=== PATIENT | female | born 1975 | race Caucasian/White ===

== ENCOUNTER → 2019-01-03 11:19 | Outpatient (CLI) | payer OTHER, SELFPAY ==
--- NOTE | 2019-01-03 | DI.MRI.S_ITS ---
PROCEDURE: MR LOWER LEG LT WO/W CON INDICATIONS: Pain in left lower leg TECHNIQUE: Noncontrast coronal T1 spin echo and STIR, sagittal T1 spin echo with fat saturation and STIR, axial T1 spin echo and T2 fast spin echo with fat saturation. After the administration of contrast, axial/sagittal/coronal T1 spin echo with fat saturation through the left distal femur and proximal tibia. COMPARISON: None. FINDINGS: Image quality: Excellent. Bones: The visualized bone marrow demonstrates normal signal on all sequences. The overlying cortex appears intact. However, there is mild periosteal T2 hyperintensity along the anteromedial aspect of the left mid tibia. No definite associated No abnormal intraosseous enhancement. Soft tissues: No soft tissue masses are visualized. The scanned muscles demonstrate normal overall bulk and internal signal. Subcutaneous tissues appear normal as well. No abnormal soft tissue enhancement. IMPRESSION: Mild periosteal T2 hyperintensity/edema along the anteromedial aspect of the left mid tibia, suggesting low-grade anteromedial tibial stress syndrome (durbin splints). However recommend clinical correlation given the subtlety of the MR appearance. Partially visualized Vo's cyst. Dedicated left knee MRI could be performed as clinically necessary. Dictated by: Garcia Monzon M.D. on 01/03/2019 at 15:53 Approved by: Garcia Monzon M.D. on 01/03/2019 at 16:11
== END ==
DX: M79.662 Pain in left lower leg (principal); M71.22 Synovial cyst of popliteal space [Baker], left knee
CPT/HCPCS: 73720; A9579

== ENCOUNTER → 2021-08-05 12:36 | Outpatient (CLI) | payer OTHER, SELFPAY ==
[2021-08-05 16:54] LABS: COVID19 -Nasal RAPID Negative (Negative)
== END ==
PROVIDERS: PCP Family Medicine; Visit Provider Obstetrics & Gynecology
DX: Z20.822 Contact with and (suspected) exposure to COVID-19 (principal); Z01.812 Encounter for preprocedural laboratory examination
CPT/HCPCS: 87635

== ENCOUNTER 2021-08-06 11:51 | Day surgery (SDC) | payer OTHER, SELFPAY ==
[2021-08-03 15:00] VITALS: BMI 29.5
[2021-08-06] VITALS (15 sets, daily range): BP systolic 99–124; BP diastolic 59–77; PULSE 58–96; RESP 11–17; TEMP 36.1–36.3; O2SAT 92–100; BMI 29.5
--- NOTE | 2021-08-06 | PATH_ITS ---
[facility] Accession Number: [id number] . 01 Material submitted: . uterus - UTERUS, BILATERAL FALLOPIAN TUBES . 02 Diagnosis: Uterus, Bilateral Fallopian Tubes, Total Laparoscopic Hysterectomy and Bilateral Salpingectomy (Fragmented Uterus Weight 88 grams): Proliferative endometrium; negative for glandular hyperplasia, cytologic atypia, or malignancy. Myometrium with patchy foci suggestive of adenomyosis and otherwise no significant histomorphologic abnormality. Fallopian tubes x2; complete cross-sections; small benign paratubal cysts (1-2 mm); negative for atypia or malignancy. Uterine serosa with nonspecific adhesions. [facility] 08/10/2021 1257 Local . 02 Electronically signed: . Anusha Arellano MD, Pathologist NPI- [id number] . 01 Gross description: . Received in formalin and labeled with the patient's name, designated uterus, bilateral fallopian tubes, is a markedly disrupted and fragmented uterus with bilateral undesignated fallopian tubes. The cervix is not present. The uterus fragments aggregate to 88 grams, 10.5 x 10.0 x 3.5 cm. The serosa is chowdhury with moderate focal hemorrhagic adhesions. There is scant possible red-brown hemorrhagic endometrium up to 0.1 cm thick. The myometrium is pink-chowdhury and mildly trabeculated, up to 2.5 cm thick in the largest intact fragment. No discrete nodules, masses or other lesions are identified. The first fallopian tube is 7 cm long by 0.6 cm in diameter with a purple outer surface and attached open fimbriae. The second fallopian tube is 6.5 cm long by 0.6 cm in diameter with a purple-hastings outer surface and attached open fimbriae. No additional lesions are identified. High Density Finishing Operator sections are submitted as follows: . A1-A2: High Density Finishing Operator endomyometrium. A3: High Density Finishing Operator first fallopian tube with entire fimbriae. A4: High Density Finishing Operator second fallopian tube with entire fimbriae. (COLTON:[id number]) /MRV 08/07/2021 [facility]4 Local . 02 Pathologist provided ICD-10: N99.85, N93.9, D25.9, D25.1, Z98.890 . 02 CPT . 100655 Specimen Comment: A courtesy copy of this report has been sent to [phone] Performed at: 01 [facility] [address] [place] [id number] MD Feng Sales MD Phone: [phone] Performed at: 02 [facility] [id number] [place] [id number] MD Oxana Bello MD Phone: [phone]
[2021-08-06] MEDS: LACTATED RINGERS 1,000 ML 42 ML IV ×2 (12:54→15:16)
[2021-08-06] MEDS: ACETAMINOPHEN 325 MG TABLET 975 MG PO (13:17)
--- NOTE | 2021-08-06 13:37 | PM.PREOP ---
Pre-operative Note COVID-19 COVID-19 status: Negative Result date/Date tested (Pos, Neg/Pending): 08/06/21 Criteria for continued procedure: Non-surgical alternatives not available or appropriate per current SOC Interval Note History & Physical reviewed/Exam performed by Physician: Yes Changes to H&P: No
[2021-08-06] MEDS: CEFAZOLIN 2 GM/20 ML SYRINGE IV (13:56)
--- NOTE | 2021-08-06 14:25 | SUR.OPER ---
Lithotomy on padded OR bed. [place] Pad Positioner under torso. Head on pillow, arms padded and tucked at sides. Legs secured in padded yellow fins stirrups.
[2021-08-06] MEDS: BUPIVACAINE 0.5% (PF) 30 ML, EPINEPHrine 0.15 MG INJ (14:32)
[2021-08-06] MEDS: ROPIVACAINE 0.2% PF 2 MG/ML 10ML AMP 20 ML INJ (15:25)
[2021-08-06] MEDS: fentaNYL 100 MCG/2 ML INJ IV (16:08)
--- NOTE | 2021-08-06 16:08 | P.OP_ITS ---
Operative Date/Time/Diagnoses Date of procedure: 08/06/21 Time of procedure: 13:50 Pre-op diagnosis: Post endometrial ablation syndrome Uterine fibroid Abnormal uterine bleeding Post-op diagnosis: same Procedure & Clinicians Procedure: Procedures Operation Date: 08/06/21 13:30 Actual Procedure Side Surgeon p Laparoscopic Supracervical Hysterectomy; bilateral salpingectomy Bilateral Ovi Bradford MD Indications: Nikole is a 46-year-old , LMP 07/19/2021 referred from [facility] for evaluation of the above complaints.? Patient experienced menarche at age 11 and throughout her reproductive life has had regular but heavy and prolonged periods she has been tried on Nexplanon as well as oral contraceptives without significant benefit.? Patient underwent endometrial ablation about 10 years ago due to severe, prolonged periods resulting in anemia.? Patient had on menorrhea following the ablation up until about 2019 when she started having bleeding and increasing sense of pelvic pressure.? Pelvic ultrasound was performed on 01/15/2019 and again on 09/19/2020 which showed a bulky uterus measuring 9.5 cm by 4 point cm by 4.1 cm with a mildly heterogenous low-density ovoid mass occupying the posterior myometrium in the body region consistent with the uterine fibroid.? The estimated size of the fibroid was 3.8 x 3.8 x 2.4 cm.? Visually the fibroid did not appear to have changed significantly since 2019.? The endometrial canal echo was indistinct and therefore not possible to accurately measure which is consistent with her prior history of endometrial ablation.? Both ovaries appeared to be normal and there were no adnexal masses, focal fluid collections, free fluid or other abnormality.? In April 2019 the patient underwent endometrial biopsy which showed inactive appearing endometrium with areas of stromal breakdown but was negative for hyperplasia, atypia, or chronic endometritis.? Her most recent Pap smear is in May 2021 which was negative cytologically but her testing was positive for high-risk HPV (non 16/18).? OB history is notable for vaginal of her 1st child followed by 2 with her 2nd and 3rd children. After consideration of all options, the patient has decided to proceed with total laparoscopic hysterectomy with bilateral salpingectomy and ovarian pr eservation.? Patient is currently scheduled for her surgery in the [facility] August 06, 2021 and she presents today for her scheduled surgery. Surgeon: Ovi Bradford Manager Material: Mayte Rodriguez Anesthesia Type: General Operative Notes Findings: The uterus is upper limits of normal size and boggy. Both fallopian tubes appeared to be normal. The left ovary is normal in appearance with some filmy adhesions to the sidewall on the left and the anterior aspect of the rectosigmoid which were lysed during the course of the surgery. The right ovary is normal. The lower uterine segment and cervix are involved with dense adhesions involving the bladder from prior sections. The cervix is long and the posterior fornix has identified below the colpotomy cup is well below the insertion of the uterosacral ligaments. Appendix is visually normal. The upper abdomen is also normal to laparoscopic inspection. Aside from significant scarring in the anterior cul-de-sac there are no other abnormalities noted. There were no abnormalities noted in the posterior cul-de-sac. Closure Type: primary Specimen(s): left tube, right tube, uterus and other Applied: catheter Estimated blood loss (mL): 75 Blood products transfused: none Procedure in detail: With the patient under satisfactory general endotracheal anesthesia in the modified dorsal lithotomy position, perineum, vagina and abdomen were prepped and draped in the usual manner for total laparoscopic hysterectomy. A pre- surgical safety time-out was then taken in accordance with [facility] Main OR protocols. A Ferrer catheter was inserted in the bladder. A speculum was inserted in the vagina and the anterior lip of the cervix grasped with a single- tooth tenaculum. A Freeppie uterine manipulator with a medium cup was then inserted into the uterine cavity and manipulated into proper position. The umbilicus was then infiltrated with 0.5% Marcaine and a 5 mm vertical umbilical incision was made. A Veress needle was then used to insufflate the abdomen with carbon dioxide and once insufflated a 5 mm laparoscopic port was placed through the umbilical incision. Placement of the trocar and sleeve into the abdominal cavity was confirmed with the laparoscoped and once confirmed, a 2nd and 3rd 5 m m laparoscopic port was placed using the same technique in the right and left mid quadrants. Using a 3 puncture technique the pelvis was visualized with the findings as noted previously. The distal tube on the left was grasped with an atraumatic grasper and elevated. The adhesions involving the distal ovary and the bowel were then taken down with sharp and blunt dissection. The fimbria ovarica was then grasped and coagulated and divided with the power seal device. The dissection was then carried down across the mesosalpinx to the level of the cornua at which point the utero-ovarian ligament and round ligament were taken with the power seal device. The dissection was then carried down the lateral aspect of the uterus on the left-hand side and dilated, thrombosed veins were encountered and secured with the power seal bipolar device. The dissection was then carried down to the uterovesical reflection and a transverse incision of the peritoneum was made starting on the left-hand side and over to the right. Attempts to create an appropriate plane to dissect the bladder off the lower uterine segment or attempted laterally on the left side with minimal success do the density of the adhesions and the distortion of the anatomy. Identification of the anterior fornix was not possible due to the density of the adhesions and the overlying, adherent bladder which was advanced from her prior cesareans. Attention was then turned to the right-hand side with the fimbria varicose grasped and elevated with a grasping forcep. Our seal device was then the used to coagulate and divide the fimbria ovarica and that dissection was carried across the mesosalpinx, across the utero-ovarian ligament on the right and across the round on the right. The dissection was carried down lateral to the uterus on the right-hand side and the bladder flap was completed. Attempts to appropriate dissection plane on the right-hand side where similarly unsuccessful and the bladder remained densely adherent to the cervix. The distorted anatomy combined with the fact that the posterior fornix was well below the insertion of the uterosacral ligaments, the decision was made instead to perform a lap aroscopic supracervical hysterectomy rather than the planned total laparoscopic hysterectomy. Vessels were secured at the level of the upper endocervical canal and a Bette loop was used to amputate the uterine corpus. Hemostasis was excellent and monopolar cautery was we used to coagulate the endocervical canal. A 4 cm transverse incision was then made along the line of her previous scars after infiltration with 0.5% Marcaine with epinephrine. A 12 mm trocar and sleeve were then placed through the incision and a large Endo-Catch bag was placed through the port into the abdominal cavity and the uterus and tubes placed in the back. The bag was then brought up through the abdominal incision and the fascial incisions were extended bilaterally with Dan scissors. An Marty retractor was then placed down through the incision inside the Endo- Catch bag and the uterus brought into the field and morcellated. Once morcellation was completed within the bag, the Marty retractor was removed and the fascia closed with 0 Vicryl in a running stitch. The abdomen was reinsufflated and the pelvis reinspected for bleeding points and there were none. Pelvis was thoroughly irrigated and 20 cc of ropivacaine were placed in the cul-de-sac. The pneumoperitoneum was vented and all the incisions were closed with 4-0 Monocryl using inverted interrupted stitches. Skin glue was applied followed by appropriate dressings. The patient was then awakened and transferred to the PACU for a period of observation and recovery having tolerated the procedure well. Complications: none Post-operative Condition: stable Disposition: PACU Plan for aftercare: Routine postoperative care. Discharge a.m. 08/07/2021.
[2021-08-06] MEDS: HYDROMORPHONE 2 MG INJ IV (16:10)
[2021-08-06] MEDS: ONDANSETRON 4 MG/2 ML INJ IV (16:10)
[2021-08-06] MEDS: hydrOXYzine 50 MG/ML INJ 25 MG IM (16:13)
[2021-08-06] MEDS: OXYCODONE IR 5 MG TABLET PO (16:37)
[2021-08-06] MEDS: LACTATED RINGERS 1,000 ML 100 ML IV (17:17)
[2021-08-06] MEDS: IBUPROFEN 600 MG TABLET PO (18:55)
[2021-08-06] MEDS: HYDROMORPHONE 4 MG TABLET PO ×2 (18:55→23:02)
[2021-08-06] MEDS: DOCUSATE 100 MG CAPSULE 200 MG PO (21:43)
--- NOTE | 2021-08-06 21:57 | PC.NURSE ---
Received call from and received phone read back order to remove pt's morales chatheter if she can be tolerated. Pt was able to stand up, in and out of bed with steady gait, denied dizziness, reminded her to call when she needs to bath room. Explained side effect of pain medications and anesthesia, pt verbalized understanding and agreed to participate fall precaution. voided >400ML urine in morales catheter in this shift, will continue to monitor.
[2021-08-07 01:05] VITALS: BP 112/61; PULSE 66; RESP 17; TEMP 36.4; O2SAT 97
[2021-08-07] MEDS: IBUPROFEN 600 MG TABLET PO ×2 (01:13→08:02)
[2021-08-07] MEDS: LACTATED RINGERS 1,000 ML 100 ML IV (03:14)
[2021-08-07] MEDS: HYDROMORPHONE 4 MG TABLET PO ×2 (04:01→08:02)
[2021-08-07 04:04] VITALS: BP 119/63; PULSE 78; RESP 17; TEMP 36.4; O2SAT 97
[2021-08-07 05:18] LABS: Add Manual Diff / Slide Review NO; Basophils Absolute Auto 0 /uL (0-100); Basophils Percent Auto 0.1 % (0-2); Eosinophils Absolute Auto 0 /uL (0-450); Hematocrit 37.4 % (36-46); Hemoglobin 12.5 g/dL (12.0-16.0); Lymphocytes Absolute Auto 700 /uL (1100-4500); Lymphocytes Percent Auto 4.8 % (25-40); Mean Corpuscular HGB Conc 33.3 % (30-36); Mean Corpuscular Hemoglobin 30.3 PG (26-34); Mean Corpuscular Volume 90.9 fL (80-100); Monocytes Absolute Auto 500 /uL (0-900); Monocytes Percent Auto 3.7 % (3-14); Neutrophils Absolute Auto 13300 /uL (1500-7000); Neutrophils Percent Auto 91.4 % (50-75); Platelet Count 259 X10^3/uL (150-400); Red Blood Cell Count 4.11 X10^6/uL (4.0-5.2); Red Cell Distribution Width 12.5 % (11.6-14.8); White Blood Cell Count 14.6 X10^3/uL (4.5-11.0)
[2021-08-07] MEDS: DOCUSATE 100 MG CAPSULE 200 MG PO (08:03)
--- NOTE | 2021-08-07 09:01 | P.DS_ITS ---
History of Present Illness History of Present Illness Date Patient Seen: 08/07/21 Time Patient Seen: 09:01 Chief complaint: TOTAL LAP HYSTERECTOMY W/SHAHANA SALPINGECTOMY *OPB* Discharge Providers Provider Date of admission: 08/06/2021 Discharge Date: 08/07/21 Primary care physician: Vikram Mar DO Discharge provider: Ovi Bradford MD Summary Hospital Course Discharge Diagnosis: Abnormal uterine bleeding Uterine fibroid Post endometrial ablation syndrome Hospital Course: Nikole was admitted for surgery on 08/06/2021 and underwent a laparoscopic supracervical hysterectomy with bilateral salpingectomy for the aforementioned complaints. The original surgical plan was for a total laparoscopic hysterectomy with bilateral salpingectomy but dense adhesions involving the lower uterine segment and cervix due to her previous sections made removal of the cervix improvement/potentially unsafe, therefore the supracervical approach was used. The surgery itself was uncomplicated and the details of the procedure well summarized in my operative note of that date. Following surgery the patient has done extremely well with prompt return of bowel and bladder function, she is ambulating independently, tolerating a regular diet, and her pain is well controlled with oral medications. First morning postop hemoglobin and hematocrit are 12.5 and 37.4 respectively. She will be discharged at this time to home after counseling regarding precautionary symptoms, limitations of activity, medications, plans for follow-up which will b e in 2 weeks. Patient is to resume all of her pre op medications and will be discharged with Dilaudid 4 mg, 1 p.o. q.6 hours as needed pain dispense 10 with no refills. A follow-up appointment will be scheduled for 2 weeks postop. Status at Discharge Cognitive/behavioral status at discharge: oriented Functional status at discharge: independent ambulation Overall status at discharge: patient is progressing back to baseline Time Spent with Patient Time spent: Less than 30 minutes Exam Vital Signs (past 8 hours): - 08/07/21 01:05 08/07/21 04:04 Temperature 97.5 F L 97.5 F L Pulse Rate 66 78 Respiratory Rate 17 17 Blood Pressure 112/61 119/63 Pulse Oximetry 97 97 Oxygen Delivery Method Room Air Oxygen Flow Rate 0 Const General: cooperative and comfortable Nutritional Appearance: average body habitus Orientation: alert and oriented x3 HENMT Head: normal to inspection, atraumatic and abrasion Ears: hearing grossly normal bilaterally Face and sinus: face symmetric Eyes General: appearance normal, both eyes and all related structures Conjunctivae: conjunctivae normal Sclera: sclerae normal EOM: EOM intact bilaterally Neck Neck: normal visual inspection Resp Effort & Inspection: normal respiratory effort and able to speak in complete sentences Auscultation: clear to auscultation bilaterally Cardio Rate: regular rate Rhythm: regular rhythm Heart Sounds: S1 normal, S2 normal and no murmurs GI Inspection: normal to inspection and incision (Surgical dressings clean and dry) Palpation: soft, no hepatosplenomegaly and tender (Mild, diffuse postsurgical tenderness) External Female Exam: other (No significant bleeding noted) Extrem General: no calf tenderness Psych Appearance: grossly normal Mental Status: mental status grossly normal Speech and Movement: speech and movement normal Mood: congruent mood Affect: normal affect Attitude: cooperative Thought Process: normal Thought Content: normal Judgment: judgment good Objective Labs Result Diagrams: 08/07/21 04:50 Labs: Laboratory Results - last 24 hr 08/07/21 04:50 WBC 14.6 H RBC 4.11 Hgb 12.5 Hct 37.4 MCV 90.9 MCH 30.3 MCHC 33.3 RDW 12.5 Plt Count 259 Neut % (Auto) 91.4 H Lymph % (Auto) 4.8 L Garza % (Auto) 3.7 Eos % (Auto) 0.0 L Baso % (Auto) 0.1 Neut # (Auto) 60936 H Lymph # (Auto) 700 L Garza # (Auto) 500 Eos # (Auto) 0 Baso # (Auto) 0 PFSH Medical History (Updated 07/28/21 @ 21:39 by Lindsay Terry) ADHD Anemia Anxiety (~2009) Carpal tunnel syndrome (~2018) Chronic back pain (~2016) Hemorrhoid (~2010) Human papilloma virus (~2019) Irregular menstrual cycle (~2009) Nerve damage Osteoid osteoma (~2018) Ovarian cyst (~2008) Positive PPD (~2005) PTSD (post-traumatic stress disorder) (~2009) Thyroid nodule (~2017) Vision disorder Surgical History (Updated 08/03/21 @ 15:03 by Genesis Young RN) Anesthesia History of appendectomy (~2000) History of section (~2010) History of section (~2007) History of endometrial ablation History of surgery (~2008) Status post cryoablation (~05/2019) Family History (Updated 07/28/21 @ 21:41 by Lindsay Terry) Father Diabetes mellitus History of heart disease Hyperlipidemia Hypertension Mother Stroke Hyperthyroidism Sister Cervical cancer Grandfather Stroke Grandmother Cancer Social History household members: spouse Smoking Status: Former smoker alcohol intake: former Discharge Assessment & Plan Assessment and Plan Assessment: Status post laparoscopic supracervical hysterectomy with bilateral salpingectomy for abnormal uterine bleeding, uterine fibroid, and post endometrial ablation syndrome Plan of Treatment: Routine postoperative care with 2 week follow-up visit scheduled. Discharge Plan Discharge Plan Patient Disposition: Home Provider Discharge Comment: Please review the written instructions you received when you were discharged from the hospital. Your follow-up appointment will be scheduled for 2 weeks after your surgery and I look forward to seeing you then. If in the meanwhile however you have any problems, concerns, or other issues, please contact me either through the office phone at [phone], or via the patient portal. Discharge orders & Medications Discharge Orders: Discharge (Order); Ordered 08/07/21 Ordered By: Ovi Bradford Prescriptions: New hydromorphone [Dilaudid] 4 mg tablet 4 mg PO Q4-6H PRN (Reason: pain) Qty: 10 0RF Continued naproxen 500 mg tablet 500 mg PO BID 0RF dextroamphetamine-amphetamine [Adderall] 30 mg tablet 30 mg PO DAILY 0RF gabapentin 300 mg capsule 300 mg PO DAILY PRN (Reason: Cramps) 0RF lidocaine [Aspercreme (lidocaine)] 4 % adhesive patch,medicated 1 patch topical DAILY PRN (Reason: Pain) 0RF Follow up/Referrals: Vikram Mar DO [Primary Care Provider] - Diet/Activity/Treatments Diet: Diet as Tolerated Activity: As tolerated Other treatments: [id number] Tylenol and/or ibuprofen as needed Skin/Wound/Dressing Care Report to your healthcare provider any signs of infection, such as:: chills, fever, increased pain, unusual drainage and unusual redness Visit Report/Discharge Packet Instructions: DI for Hysterectomy, DI for Laparoscopy Stand Alone Forms: Surgery Discharge Discharge Data Primary Care Provider: Vikram Mar Attending Provider: Ovi Bradford
--- NOTE | 2021-08-07 10:32 | PC.NURSE ---
Pt is AxOx4, independent, VSS and c/o on abdomen and recieved PRN Dilaudid 4mg PO and Ibuprofen 400mg with good effect. Pt is voiding and eating well. D/c instructions were given and pt d/c to home home .
== END 2021-08-07 10:32 | disposition home or self-care (01) ==
LOC: OR 11:57 → AC 12:00
PROVIDERS: PCP Family Medicine; Referring Provider Obstetrics & Gynecology; Visit Provider Obstetrics & Gynecology
PROC: 0UT94ZZ Resection of Uterus, Percutaneous Endoscopic Approach (ICD-10-PCS; CPT 58542; principal; 2021-08-06 13:30)
DX: N99.85 Post endometrial ablation syndrome (principal); N93.9 Abnormal uterine and vaginal bleeding, unspecified; N83.8 Other noninflammatory disorders of ovary, fallopian tube and broad ligament; N73.6 Female pelvic peritoneal adhesions (postinfective); D25.1 Intramural leiomyoma of uterus
CPT/HCPCS: 58542; 36415; 81025; 85025; J0171; J0330; J0690; J1100; J1170; J1885; J2250; J2405; J2704; J2795; J3010; J3410

== ENCOUNTER → 2021-10-01 12:01 | Outpatient (CLI) | payer OTHER, SELFPAY ==
[2021-08-06 21:11] VITALS: BMI 29.5
[2021-10-01 15:18] LABS: Follicle Stimulating Hormone 65.9 mIU/mL
[2021-10-01 15:34] LABS: Estradiol, Total 47.8 pg/mL
== END ==
PROVIDERS: PCP Family Medicine; Referring Provider Obstetrics & Gynecology; Visit Provider Obstetrics & Gynecology
DX: N95.1 Menopausal and female climacteric states (principal)
CPT/HCPCS: 36415; 82670; 83001

== ENCOUNTER 2023-07-27 10:27 | Day surgery (SDC) | payer OTHER, SELFPAY ==
[2021-08-06 21:11] VITALS: BMI 29.5
--- NOTE | 2023-07-27 | PATH_ITS ---
[facility] Accession Number: [id number] No. of containers..02 Tissue . 01 Material submitted: . PART A: duodenum - DUODENUM POLYP PART B: gastrointestinal site - STOMACH POLYP . 01 Diagnosis: Part A: DUODENUM POLYP: Duodenal mucosa with focal erosion, prominent benign Fidencio's glands, and reactive changes suggestive of peptic duodenitis. No evidence of celiac disease. No dysplasia or malignancy identified. . Part B: STOMACH POLYP: Helicobacter pylori gastritis. No intestinal metaplasia, dysplasia, or malignancy identified. No definite polyp identified. See comment. . Specimen Comments: While no neoplasm or definite polyp is seen, in some cases the presence of inflammation may result in a polypoid appearance on endoscopy. Clinical correlation is recommended. [facility] 08/03/2023 1135 Local . 01 Electronically signed: . Feng Sales MD, Pathologist NPI- [id number] . 01 Gross description: . Part A: DUODENUM POLYP: Received in formalin are 2 fragment(s) of chowdhury, soft tissue measuring 0.3 x 0.2 x 0.2 cm to 0.4 x 0.2 x 0.2 cm submitted entirely in 1 cassette(s) . Part B: STOMACH POLYP: Received in formalin is 1 fragment(s) of chowdhury, soft tissue measuring 0.3 x 0.3 x 0.2 cm submitted entirely in 1 cassette(s) /MADIE 08/03/2023 1135 Local . 01 Microscopic: . Part B: STOMACH POLYP: An immunohistochemical stain was performed to evaluate for Helicobacter organisms and is negative. The control stains appropriately. * This test was developed and its performance characteristics determined by [employer]. It has not been cleared or approved by the U.S. Food and Drug Administration. The FDA has determined that such clearance or approval is not necessary. This test is used for clinical purposes. It should not be regarded as investigational or for research. . 01 Pathologist provided ICD-10: B96.81, K29.80 . 01 CPT . 179165, 679811, E07054 Specimen Comment: A courtesy copy of this report has been sent to [phone] Performed at: 01 [facility] [address] [place] [address] [address], [place], [place] [id number] MD Feng Sales MD Phone: [phone]
[2023-07-27 10:46] VITALS: BP 122/77; PULSE 80; RESP 16; TEMP 36.6; O2SAT 100
--- NOTE | 2023-07-27 10:46 | PM.HP.1 ---
History of Present Illness History of Present Illness Date Patient Seen: 07/27/23 Chief complaint: EGD Narrative: Right upper quadrant pain persistent PFSH Medical History (Updated 10/01/21 @ 11:38 by Ovi Bradford MD) Nerve damage Vision disorder PTSD (post-traumatic stress disorder) (~2009) Anxiety (~2009) ADHD Osteoid osteoma (~2018) Chronic back pain (~2016) Carpal tunnel syndrome (~2018) Positive PPD (~2005) Anemia Ovarian cyst (~2008) Irregular menstrual cycle (~2009) Human papilloma virus (~2019) Hemorrhoid (~2010) Thyroid nodule (~2017) Surgical History (Updated 08/03/21 @ 15:03 by Genesis Young RN) History of endometrial ablation Anesthesia History of appendectomy (~2000) History of surgery (~2008) History of section (~2007) History of section (~2010) Status post cryoablation (~05/2019) Family History (Updated 07/28/21 @ 21:41 by Lindsay Terry) Father Diabetes mellitus History of heart disease Hyperlipidemia Hypertension Mother Stroke Hyperthyroidism Sister Cervical cancer Grandfather Stroke Grandmother Cancer Social History household members: spouse Smoking Status: Former smoker alcohol intake: former Meds Home Medications and Allergies Home Medications Medication Instructions Recorded Confirmed Type dextroamphetamine-amphetamine 30 30 mg PO DAILY 07/01/21 07/27/23 History mg tablet (Adderall) gabapentin 300 mg capsule 300 mg PO DAILY PRN Cramps 07/01/21 07/27/23 History naproxen 500 mg tablet 500 mg PO BID 07/29/21 07/27/23 History Allergies Allergy/AdvReac Type Severity Reaction Status Date / Time hydrocodone [From Vicodin] Allergy Unknown Hives Verified 07/27/23 10:40 codeine Allergy Hives Verified 07/27/23 10:40 Opioids-Meperidine and AdvReac Severe Vomiting Verified 07/27/23 10:40 Related Exam Narrative Exam Narrative: Oropharynx free of lesions Chest clear to auscultation percussion Cardiac exam reveals no S3 or murmur Assessment & Plan Assessment & Plan narrative: Persistent right upper quadrant pain rule out peptic ulcer disease. Risks, benefits, alternatives have been explained.
--- NOTE | 2023-07-27 10:48 | PM.OP.EGD ---
Operative Date/Time/Diagnoses Date of procedure: 07/27/23 Pre-op diagnosis: See indication and findings Procedure & Clinicians Study performed: EGD Indications: Right upper quadrant pain Surgeon: Kristy Celis Procedure Notes Procedure in detail: After informed consent was obtained the patient was placed in left lateral decubitus position. Video upper scope placed into the oropharynx and with patient's help swallowed into the esophagus. The esophagus stomach and duodenum were carefully examined. On withdrawal retroflexed view the GE junction was performed. The scope was removed. The patient tolerated procedure well. Blood loss none Complications none Sedation mac Findings 1. Normal esophagus 2. Somewhat erythematous distal stomach biopsies taken to rule out Helicobacter 3. Non erosive severe duodenitis in the duodenal bulb primarily. Biopsies taken. Photographs taken. Patient should go to the pharmacy and get Pepcid OTC 20 mg 1 p.o. b.i.d. and see how her symptoms resolve over the next 2-4 weeks.
[2023-07-27] MEDS: LACTATED RINGERS 1,000 ML 42 ML IV (10:51)
[2023-07-27 11:06] VITALS: BP 113/79; PULSE 83; RESP 11; TEMP 36.5; O2SAT 95
[2023-07-27 11:13] VITALS: BP 118/75; PULSE 94; RESP 13; TEMP 36.4; O2SAT 100
[2023-07-27 11:19] VITALS: BP 125/86; PULSE 71; RESP 14; TEMP 36.6; O2SAT 100
== END 2023-07-27 11:33 | disposition home or self-care (01) ==
PROVIDERS: PCP Family Medicine; Referring Provider Nurse Practitioner Family; Visit Provider Internal Medicine Gastroenterology
PROC: 0DJ08ZZ Inspection of Upper Intestinal Tract, Via Natural or Artificial Opening Endoscopic (ICD-10-PCS; CPT 43235; principal; 2023-07-27 11:30)
DX: K29.80 Duodenitis without bleeding (principal); K29.60 Other gastritis without bleeding; B96.81 Helicobacter pylori [H. pylori] as the cause of diseases classified elsewhere
CPT/HCPCS: 43239; J2704

== ENCOUNTER 2024-01-11 11:15 | Day surgery (SDC) | payer OTHER, SELFPAY ==
[2021-08-06 21:11] VITALS: BMI 29.5
--- NOTE | 2024-01-11 | PATH_ITS ---
[facility] Accession Number: [id number] No. of containers..01 Tissue . 01 Material submitted: . colon - HEPATIC FLEXURE POLYP . 01 Diagnosis: HEPATIC FLEXURE POLYP: Sessile serrated adenoma. STO 01/13/2024 1319 Local . 01 Electronically signed: . Feng Sales MD, Pathologist NPI- [id number] . 01 Gross description: . HEPATIC FLEXURE POLYP: Received in formalin is 1 fragment(s) of chowdhury, soft tissue measuring 0.6 x 0.6 x 0.6 cm submitted entirely in 1 cassette(s) /MADIE 01/13/2024 1319 Local . 01 Pathologist provided ICD-10: D12.3 . 01 CPT . 200575 Specimen Comment: A courtesy copy of this report has been sent to [phone] Performed at: [address] [facility] [id number] MD Feng Sales MD Phone: [phone]
[2024-01-11 11:28] VITALS: BP 124/83; PULSE 79; RESP 16; TEMP 36.5; O2SAT 100
--- NOTE | 2024-01-11 11:50 | PM.OP.COLON ---
Operative Date/Time/Diagnoses Date of procedure: 01/11/24 Pre-op diagnosis: See indication and findings Procedure & Clinicians Study performed: Colonoscopy Indications: 1st screening Surgeon: Kristy Celis Procedure Notes Procedure in detail: After informed consent was obtained the patient was placed in left lateral decubitus position. The video colonoscope was introduced the rectum slowly advanced cecum. Preparation was good. On slow withdrawal mucosa was carefully examined. The scope was removed. The patient tolerated procedure well. Blood loss none Complications none Sedation mac Findings 1. large semi translucent polyp at the hepatic flexure measuring approximately 18 x 26 mm. This was injected with 3 cc of spot and then using a hot snare the majority was removed. The remainder was treated with APC at a setting of 0.8 and 20 w. good coverage was obtained. 2. Otherwise negative colonoscopy to cecum Patient will need follow-up colonoscopy within 6 months to evaluate polypectomy site for complete removal.
--- NOTE | 2024-01-11 11:51 | P.HP_ITS ---
History of Present Illness History of Present Illness Date Patient Seen: 01/11/24 Chief complaint: Screening Colonoscopy Narrative: First screening colonoscopy [facility] Medical History (Updated 10/01/21 @ 11:38 by Ovi Bradford MD) Nerve damage Vision disorder PTSD (post-traumatic stress disorder) (~2009) Anxiety (~2009) ADHD Osteoid osteoma (~2018) Chronic back pain (~2016) Carpal tunnel syndrome (~2018) Positive PPD (~2005) Anemia Ovarian cyst (~2008) Irregular menstrual cycle (~2009) Human papilloma virus (~2019) Hemorrhoid (~2010) Thyroid nodule (~2017) Surgical History (Updated 07/27/23 @ 10:53 by Ajay Ríos RN) H/O: hysterectomy History of endometrial ablation Anesthesia History of appendectomy (~2000) History of surgery (~2008) History of section (~2007) History of section (~2010) Status post cryoablation (~05/2019) Family History (Updated 07/28/21 @ 21:41 by Lindsay Terry) Father Diabetes mellitus History of heart disease Hyperlipidemia Hypertension Mother Stroke Hyperthyroidism Sister Cervical cancer Grandfather Stroke Grandmother Cancer Social History household members: spouse Smoking Status: Former smoker alcohol intake: former Meds Home Medications and Allergies Home Medications Medication Instructions Recorded Confirmed Type dextroamphetamine-amphetamine 30 30 mg PO DAILY 07/01/21 01/11/24 History mg tablet (Adderall) Allergies Allergy/AdvReac Type Severity Reaction Status Date / Time hydrocodone [From Vicodin] Allergy Unknown Hives Verified 07/27/23 10:40 codeine Allergy Hives Verified 07/27/23 10:40 Opioids-Meperidine and AdvReac Severe Vomiting Verified 07/27/23 10:40 Related Exam Vital Signs (past 8 hours): - 01/11/24 11:28 Temperature 97.7 F Pulse Rate 79 Respiratory Rate 16 Blood Pressure 124/83 Pulse Oximetry 100 Oxygen Delivery Method Room Air Oxygen Delivery Method Room Air Narrative Exam Narrative: Oropharynx free of lesions Chest clear to auscultation percussion Cardiac exam reveals no S3 or murmur Assessment & Plan Assessment & Plan narrative: For screening colonoscopy. Risks, benefits, alternatives have been explained. Time-Based Coding :: [TOTAL MINUTES] spent with patient and on the chart (including review of chart, obtaining history, exam, reviewing outside data, placing orders, documenting exam and treatment plan, and counseling patient) on [DATE].
[2024-01-11 12:38] VITALS: BP 116/95; PULSE 86; RESP 20; TEMP 36.3; O2SAT 99
[2024-01-11 12:44] VITALS: BP 127/90; PULSE 79; RESP 15; TEMP 36.3; O2SAT 99
[2024-01-11 12:51] VITALS: BP 143/94; PULSE 73; RESP 20; TEMP 36.2; O2SAT 100
[2024-01-11 12:56] VITALS: BP 141/87; PULSE 75; RESP 18; TEMP 36.3; O2SAT 99
[2024-01-11 14:03] VITALS: BP 140/85; PULSE 75; RESP 16; TEMP 36.7; O2SAT 99
== END 2024-01-11 14:05 | disposition home or self-care (01) ==
PROVIDERS: Admitting Provider Internal Medicine Gastroenterology; PCP Family Medicine; Referring Provider Surgery; Visit Provider Surgery
PROC: 0DJD8ZZ Inspection of Lower Intestinal Tract, Via Natural or Artificial Opening Endoscopic (ICD-10-PCS; CPT 45378; principal; 2024-01-11 12:30)
DX: Z12.11 Encounter for screening for malignant neoplasm of colon (principal); D12.3 Benign neoplasm of transverse colon
CPT/HCPCS: 45381; 45385; J2704

== ENCOUNTER → 2024-04-19 12:14 | Outpatient (CLI) | payer OTHER, SELFPAY ==
[2021-08-06 21:11] VITALS: BMI 29.5
--- NOTE | 2024-04-19 12:15 | DI.CT.S_ITS ---
PROCEDURE: CT ABDOMEN PELVIS W CON INDICATIONS: RUQ/RLQ PAIN TECHNIQUE: After the administration of intravenous contrast, axial sections acquired from the lung bases to the pubic symphysis. Coronal and sagittal reformats were performed. For radiation dose reduction, the following was used: automated exposure control, adjustment of mA and/or kV according to patient size. COMPARISON: None. FINDINGS: Image quality: Diagnostic. Lower Chest: No significant findings. ABDOMEN: Liver: No solid mass. Gallbladder: No radiopaque gallstones or wall thickening. Biliary ducts: No biliary dilation. Pancreas: No ductal dilation. Spleen: Size is within normal limits. Adrenal Glands: No adrenal nodules. Kidneys and Ureters: No hydronephrosis. No solid mass. No complex renal cystic lesion which requires follow up. Benign-appearing renal cysts. Stomach and Bowel: Status post appendectomy. Bowel wall thickening in the descending and sigmoid colon may be related to underdistention. A few diverticula are seen without signs of acute diverticulitis. Small bowel loops are unremarkable. Peritoneum: No abnormal intraperitoneal fluid. No free air. Ventral Wall: Tiny fat containing periumbilical hernia. Abdominal Nodes: No retroperitoneal or mesenteric adenopathy by size criteria. Vessels: Aorta and inferior vena cava are normal in size. PELVIS: Pelvic Organs: Postsurgical changes from probable supracervical hysterectomy. Bladder: No bladder wall thickening, accounting for underdistention. Pelvic Nodes: No enlarged lymph nodes. Miscellaneous: No inguinal hernias are seen. Bones: No aggressive osseous abnormality. IMPRESSION: 1. Mild bowel wall thickening in the descending and sigmoid colon may be related to underdistention versus a nonspecific colitis. 2. Mild colonic diverticulosis without acute diverticulitis. Moderate colonic stool. Approved by: Wili Cunha M.D. on 04/19/2024 at 19:22
== END ==
PROVIDERS: PCP Family Medicine; Referring Provider Physician Assistant; Visit Provider Physician Assistant
DX: K57.30 Diverticulosis of large intestine without perforation or abscess without bleeding (principal); R10.11 Right upper quadrant pain; R10.31 Right lower quadrant pain; Z86.0101 Personal history of adenomatous and serrated colon polyps
CPT/HCPCS: 74177; Q9967